=== PATIENT | male | born 1975 | race Caucasian/White ===

== ENCOUNTER 2018-03-01 12:42 | Inpatient (IN) | payer OTHER ==
[2018-03-01 14:44] VITALS: BMI 31.6
--- NOTE | 2018-03-01 18:16 | HP ---
COWS - Scale Resting Pulse: 1= NE 81-100 Sweatin= Chills/Flushing Restless Observation: 1= Difficult to Sit Still Pupil Size: 0= Normal to Room Light Bone or Joint Aches: 1= Mild Discomfort Runny Nose/ Eye Tearin= Runny Nose/Eyes GI Upset > 30mins: 2= Nausea/Diarrhea Tremor Observation: 1= Tremor [place], Not Seen Yawning Observation: 1= 1-2x During Session Anxiety or Irritability: 2=Irritable/Anxious Goose Flesh Skin: 3=Piloerection COWS Score: 15 Admission ROS [facility] Chief Complaint: opioid withdrawal symptoms Allergies/Adverse Reactions: Allergies Allergy/AdvReac Type Severity Reaction Status Date / Time soy Allergy Severe Swelling Verified 03/01/18 18:25 No Known Drug Allergies Allergy Verified 03/01/18 18:25 SOY MILK Allergy Severe Swelling Uncoded 03/01/18 15:38 NKDA Allergy Uncoded 03/01/18 15:39 History of Present Illness: 42 yo male with hx of cocaine, nicotine, street methadon, IV heroin and cocaine dependence is here seeking detox. Last detox one month ago at [facility]. PMHX: asthma, and depression. Denies suicidal / homicidal ideation or hx of suicide attempt. Denies hx of seizures or blackouts,. OD x2, with last episode one year ago. Longest period of sobriety 18 months. Exam Limitations: No Limitations - Ebola screening Have you traveled outside of the country in the last 21 days: No Have you had contact with anyone from an Ebola affected area: No Have you been sick,other than usual withdrawal symptoms: No Do you have a fever: No - Review of Systems Constitutional: Chills, Loss of Appetite, Changes in sleep, Unintentional Wgt. Loss EENT: reports: No Symptoms Reported Respiratory: reports: No Symptoms reported GI: reports: No Symptoms Reported Musculoskeletal: reports: Back Pain, Joint Pain Integumentary: reports: No Symptoms Reported Neuro: reports: No Symptoms reported Endocrine: reports: Increased Thirst Hematology: reports: No Symptoms Reported Psychiatric: reports: Orientated x3, Depressed Other Systems: Reviewed and Negative Patient History - Patient Medical History Hx Anemia: No Hx Asthma: Yes Hx Chronic Obstructive Pulmonary Disease (COPD): No Hx Cancer: No Hx Cardiac Disorders: No Hx Congestive Heart Failure: No Hx Hypertension: No Hx Pacemaker: No HX Cerebrovascular Accident: No Hx Seizures: No Hx Dementia: No Hx Diabetes: No Hx Gastrointestinal Disorders: No Hx Liver Disease: No Hx Genitourinary Disorders: No Hx Sexually Transmitted Disorders: No Hx Renal Disease (ESRD): No Hx Thyroid Disease: No Hx Human Immunodeficiency Virus (HIV): No (last tested one year ago. Declines testing today ) Hx Hepatitis C: No Hx Depression: Yes Hx Suicide Attempt: No Hx Bipolar Disorder: No Hx Schizophrenia: No - Patient Surgical History Past Surgical History: No Hx Neurologic Surgery: No Hx Cataract Extraction: No Hx Cardiac Surgery: No Hx Lung Surgery: No Hx Breast Surgery: No Hx Breast Biopsy: No Hx Abdominal Surgery: No Hx Appendectomy: No Hx Cholecystectomy: No Hx Genitourinary Surgery: No Hx Section: No Hx Orthopedic Surgery: No Anesthesia Reaction: No - PPD History Previous Implant?: Yes Documented Results: Negative w/o proof Implanted On Prior [facility] Admission?: No PPD to be Administered?: Yes - Smoking Cessation Smoking history: Current every day smoker Have you smoked in the past 12 months: Yes Aproximately how many cigarettes per day: 10 Hx Chewing Tobacco Use: No Initiated information on smoking cessation: Yes 'Breaking Loose' booklet given: 03/01/18 - Substance & Tx. History Hx Alcohol Use: Yes Hx Substance Use: Yes Substance Use Type: Cocaine, Heroin Hx Substance Use Treatment: Yes ([facility] one month ago ) - Substances Abused Heroin Route: Injection Frequency: Daily Amount used: 10-15 bags Age of first use: 17 Date of Last Use: 03/01/18 Cocaine Route: Smoking Frequency: 1-2 times per week Amount used: $20 Age of first use: 16 Date of Last Use: 02/27/18 Street methadone Route: Oral Frequency: 1-3 times last 30 days Amount used: 50 mg. Age of first use: 17 Date of Last Use: 02/25/18 Family Disease History - Family Disease History Family History: Unremarkable Admission Physical Exam BHS - Vital Signs Vital Signs: Vital Signs - 24 hr 03/01/18 14:42 Temperature 99.2 F Pulse Rate 85 Respiratory 18 Rate Blood Pressure 115/77 - Physical General Appearance: Yes: Appropriately Dressed, Mild Distress, Obese, Sweating, Anxious HEENTM: Yes: EOMI, Hearing grossly Normal, Normal ENT Inspection, Normocephalic , Normal Voice, PORTILLO, Pharynx Normal, Tm's normal Respiratory: Yes: Chest Non-Tender, Normal Breath Sounds, No Respiratory Distress, No Accessory Muscle Use Neck: Yes: No masses,lesions,Nodules, Trachea in good position Breast: Yes: Breast Exam Deferred Cardiology: Yes: Regular Rhythm, Regular Rate Abdominal: Yes: Normal Bowel Sounds, Non Tender, Soft, Protuberent Genitourinary: Yes: Within Normal Limits Back: Yes: Normal Inspection Musculoskeletal: Yes: full range of Motion, Gait Steady, Pelvis Stable Extremities: Yes: Normal Capillary Refill, Normal Inspection, Normal Range of Motion, Non-Tender 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 NML intact, Fully Oriented, Alert, Motor Strength 5/5, Depressed Affect Integumentary: Yes: Normal Color, Warm, Diaphoresis, Track Santacruz (bilateral forearms no infection) - Diagnostic (1) Cocaine dependence Current Visit: Yes Status: Acute Qualifiers: Substance use status: uncomplicated Qualified Code(s): F14.20 - Cocaine dependence, uncomplicated (2) Opioid dependence with withdrawal Current Visit: Yes Status: Acute (3) IV drug user Current Visit: Yes Status: Acute (4) Asthma Current Visit: Yes Status: Chronic Qualifiers: Asthma severity: unspecified severity Asthma persistence: unspecified Asthma complication type: unspecified Qualified Code(s): J45.909 - Unspecified asthma, uncomplicated (5) Depressed mood Current Visit: Yes Status: Acute (6) Nicotine dependence Current Visit: Yes Status: Chronic Qualifiers: Nicotine product type: cigarettes Cleared for Admission [facility] - Detox or Rehab [facility] Level of Care: Medically Managed Detox Regimen/Protocol: Methadone [facility] Breath Alcohol Content Breath Alcohol Content: 0 Urine Drug Screen - Results Drug Screen Negative: No Urine Drug Screen Results: ADEN-Cocaine, OPI-Opiates, MTD-Methadone
[2018-03-01] MEDS ORDERED: ALBUTEROL SO4 8 GM HFA INHALER IH PRN (18:17)
[2018-03-01] MEDS ORDERED: MENTHOL/PHENOL 1 EACH UD MM PRN (18:18)
[2018-03-01] MEDS ORDERED: LOPERAMIDE HCL 2 MG CAPSULE PO PRN (18:18)
[2018-03-01] MEDS ORDERED: ACETAMINOPHEN 325 MG TABLET (FP) PO PRN (18:18)
[2018-03-01] MEDS ORDERED: MAGNESIUM HYDROX 2400MG/30ML ORAL SUSPENSION 30 ML CUP PO PRN (18:18)
[2018-03-01] MEDS ORDERED: guaiFENesin/D-METHORPHAN HB 10 ML UNIT-DOSE CUPS PO PRN (18:18)
[2018-03-01] MEDS ORDERED: MAGNESIUM CITRATE 300 ML BOTTLE PO PRN (18:18)
[2018-03-01] MEDS ORDERED: MAG HYDROX/AL HYDROX/SIMETH 30 ML UNIT-DOSE CUP PO PRN (18:18)
[2018-03-01] MEDS ORDERED: P-EPHED 60MG/TRIPROLIDI 2.5MG TABLET PO PRN (18:18)
[2018-03-01] MEDS ORDERED: ALBUTEROL SO4 0.083% IH SOL 2.5 MG/3 ML VIAL.NEB. NEB PRN (18:24)
[2018-03-01] MEDS ORDERED: METHADONE HCL 10 MG TABLET (FOR DETOX USE ONLY) PO ONE ×2 (19:00→23:00)
[2018-03-01] MEDS: diazePAM 5 MG TABLET PO PRN (19:19)
[2018-03-01] MEDS: NICOTINE POLACRILEX 2 MG GUM BC PRN (20:02)
[2018-03-01 22:11] LABS: URINE APPEARANCE TURBID; URINE BILIRUBIN NEGATIVE (<2.0 mg/dL); URINE COLOR RED; URINE GLUCOSE (UA) NEGATIVE (NEGATIVE); URINE KETONE NEGATIVE (NEGATIVE); URINE LEUK ESTERASE NEGATIVE (NEGATIVE); URINE NITRITE NEGATIVE (NEGATIVE); URINE PROTEIN NEGATIVE (NEGATIVE); URINE UROBILINOGEN NEGATIVE mg/dL (0.2-1.0)
[2018-03-01] MEDS: THIAMINE HCL 100 MG TABLET (FP) PO SCH (22:25)
[2018-03-01] MEDS: MELATONIN 5 MG TABLETS PO PRN (22:30)
[2018-03-01] MEDS: hydrOXYzine PAMOATE 50 MG CAPSULE (FP) PO PRN (22:30)
--- NOTE | 2018-03-02 07:46 | CONSULT ---
[facility] Psychiatric Consult - Data Date of interview: 03/02/18 Admission source: [facility] Identifying data: This is 42 years old male, single father of five, living with family, unemployed, with no income, with no psychiatric hospitalization history, with history of cocaine, nicotine, street methadon, IV heroin and alcohol dependence is here seeking detox. Last detox one month ago at [facility]. PMHX: asthma, and depression. Denies suicidal / homicidal ideation or hx of suicide attempt. Denies hx of seizures or blackouts,. OD x2, with last episode one year ago. Longest period of sobriety 18 months. Substance Abuse History: Smoking history: Current every day smoker. Have you smoked in the past 12 months: Yes. Aproximately how many cigarettes per day: 10. Hx Chewing Tobacco Use: No. Initiated information on smoking cessation: Yes. 'Breaking Loose' booklet given: 03/01/18. - Substance & Tx. History. Hx Alcohol Use: Yes. Hx Substance Use: Yes. Substance Use Type: Cocaine, Heroin. Hx Substance Use Treatment: Yes ([facility] one month ago ). - Substances Abused. Heroin. Route: Injection. Frequency: Daily. Amount used: 10-15 bags. Age of first use: 17. Date of Last Use: 03/01/18. Cocaine. Route: Smoking. Frequency: 1-2 times per week. Amount used: $20. Age of first use: 16. Date of Last Use: 02/27/18. Street methadone. Route : Oral. Frequency: 1-3 times last 30 days. Amount used: 50 mg. Age of first use: 17. Date of Last Use: 02/25/18 Medical History: Asthma Psychiatric History: Patient reports history of dep[ression and anxiety, reports unclear eoisode of OD a years ago, was not psychiatriocally hospitalized after OD, reports no psychiatric medications usage prior to admission, [place] current suicidal, homicidal ideation. Physical/Sexual Abuse/Trauma History: Denies Additional Comment: Observation. Detox Unit Care Protocol Mental Status Exam - Mental Status Exam Alert and Oriented to: Person Cognitive Function: Fair Patient Appearance: Unkempt Mood: Sad Affect: Flat Patient Behavior: Sedated Speech Pattern: Delayed Voice Loudness: Mildly Soft/Quiet Thought Process: Circumstantial, Goal Oriented Thought Disorder: Being Controlled Hallucinations: Denies Suicidal Ideation: Denies Homicidal Ideation: Denies Insight/Judgement: Fair Sleep: Difficulty falling asleep Appetite: Fair Muscle strength/Tone: Mild Hypotonicity Gait/Station: Shuffling Additional Comments: Observation. Detox Unit Care Protocol Psychiatric Findings - Problem List ([place] 1, 2,3) (1) Alcohol dependence Current Visit: Yes Status: Acute (2) Drug-induced mood disorder Current Visit: Yes Status: Acute (3) Cocaine dependence Current Visit: Yes Status: Acute Qualifiers: Substance use status: uncomplicated Qualified Code(s): F14.20 - Cocaine dependence, uncomplicated (4) Opioid dependence with withdrawal Current Visit: Yes Status: Acute (5) Nicotine dependence Current Visit: Yes Status: Chronic Qualifiers: Nicotine product type: cigarettes - Initial Treatment Plan Initial Treatment Plan: Observation. Detox Unit Care Protocol
[2018-03-02 09:55] LABS: HEMATOCRIT 38.7 % (35.4-49); HEMOGLOBIN 13.2 GM/dL (11.7-16.9); MCH 29.9 pg (25.7-33.7); MCHC 34.1 g/dl (32.0-35.9); MEAN CELL VOLUME 87.7 fl (80-96); MEAN PLT VOLUME 7.6 fl (7.5-11.1); PLATELET COUNT 274 K/MM3 (134-434); RBC 4.41 M/mm3 (4.00-5.60); RDW 13.2 % (11.9-15.9); WHITE BLOOD COUNT 6.1 K/mm3 (4.0-10.0)
[2018-03-02 09:58] LABS: CHLORIDE 107 mmol/L (98-107); POTASSIUM 4.6 mmol/L (3.5-5.1); SODIUM 143 mmol/L (136-145)
[2018-03-02] MEDS ORDERED: METHADONE HCL 10 MG TABLET (FOR DETOX USE ONLY) PO ONE (10:00)
[2018-03-02 10:20] LABS: ALK PHOS 59 U/L (45-117); ANION GAP 6 (8-16); BILIRUBIN,TOTAL 0.2 mg/dL (0.2-1.0); BLOOD UREA NITROGEN 14 mg/dL (7-18); CALCIUM 8.7 mg/dL (8.5-10.1); CO2 30 mmol/L (21-32); CREATININE 0.8 mg/dL (0.7-1.3); GLUCOSE,RANDOM 92 mg/dL (74-106); SGOT/AST 12 U/L (15-37); SGPT/ALT 20 U/L (12-78); TOT PROT 6.1 g/dl (6.4-8.2)
--- NOTE | 2018-03-02 10:42 | PN ---
BHS COWS - Scale Resting Pulse: 0= [place] 80 or Below Sweatin= Chills/Flushing Restless Observation: 1= Difficult to Sit Still Pupil Size: 1= Pupils >than Normal Bone or Joint Aches: 2= Severe Diffuse Aches Runny Nose/ Eye Tearin= Nasal Congestion GI Upset > 30mins: 2= Nausea/Diarrhea Tremor Observation of Outstretched Hands: 2= Slight Tremor Visible Yawning Observation: 2= >3x During Session Anxiety or Irritability: 2=Irritable/Anxious Goose Flesh Skin: 0=Smooth Skin COWS Score: 14 BHS Progress Note (SOAP) Subjective: joints pain muscle cramping body aches sweat tremor gi distress Objective: 03/02/18 10:45 Vital Signs Temperature 98 F 03/02/18 09:25 Pulse Rate 64 03/02/18 09:25 Respiratory Rate 18 03/02/18 09:25 Blood Pressure 105/73 03/02/18 09:25 O2 Sat by Pulse Oximetry (%) Laboratory Last Values WBC 6.1 K/mm3 (4.0-10.0) 03/02/18 07:30 RBC 4.41 M/mm3 (4.00-5.60) 03/02/18 07:30 Hgb 13.2 GM/dL (11.7-16.9) 03/02/18 07:30 Hct 38.7 % (35.4-49) 03/02/18 07:30 MCV 87.7 fl (80-96) 03/02/18 07:30 MCH 29.9 pg (25.7-33.7) 03/02/18 07:30 MCHC 34.1 g/dl (32.0-35.9) 03/02/18 07:30 RDW 13.2 % (11.9-15.9) 03/02/18 07:30 Plt Count 274 K/MM3 (134-434) 03/02/18 07:30 MPV 7.6 fl (7.5-11.1) 03/02/18 07:30 Sodium 143 mmol/L (136-145) 03/02/18 07:30 Potassium 4.6 mmol/L (3.5-5.1) 03/02/18 07:30 Chloride 107 mmol/L (98-107) 03/02/18 07:30 Carbon Dioxide 30 mmol/L (21-32) 03/02/18 07:30 Anion Gap 6 (8-16) L 03/02/18 07:30 BUN 14 mg/dL (7-18) 03/02/18 07:30 Creatinine 0.8 mg/dL (0.7-1.3) 03/02/18 07:30 Creat Clearance w eGFR > 60 (>60) 03/02/18 07:30 Random Glucose 92 mg/dL (74-106) 03/02/18 07:30 Calcium 8.7 mg/dL (8.5-10.1) 03/02/18 07:30 Total Bilirubin 0.2 mg/dL (0.2-1.0) 03/02/18 07:30 AST 12 U/L (15-37) L 03/02/18 07:30 ALT 20 U/L (12-78) 03/02/18 07:30 Alkaline Phosphatase 59 U/L (45-117) 03/02/18 07:30 Total Protein 6.1 g/dl (6.4-8.2) L 03/02/18 07:30 Albumin 3.0 g/dl (3.4-5.0) L 03/02/18 07:30 Urine Color Red 03/01/18 20:30 Urine Appearance Turbid 03/01/18 20:30 Urine pH 5.0 (5.0-8.0) 03/01/18 20:30 Ur Specific [place] 1.023 (1.001-1.035) 03/01/18 20:30 Urine Protein Negative (NEGATIVE) 03/01/18 20:30 Urine Glucose (UA) Negative (NEGATIVE) 03/01/18 20:30 Urine Ketones Negative (NEGATIVE) 03/01/18 20:30 Urine Blood Negative (NEGATIVE) 03/01/18 20:30 Urine Nitrite Negative (NEGATIVE) 03/01/18 20:30 Urine Bilirubin Negative (<2.0 mg/dL) 03/01/18 20:30 Urine Urobilinogen Negative mg/dL (0.2-1.0) 03/01/18 20:30 Ur Leukocyte Esterase Negative (NEGATIVE) 03/01/18 20:30 lab noted Assessment: 03/02/18 10:45 withdrawal sx Plan: continue detox
[2018-03-02] MEDS: PRENATAL VITAMINS W/ FOLIC ACID TABLET (FP) PO SCH (11:11)
[2018-03-02] MEDS: diazePAM 5 MG TABLET PO PRN ×2 (11:13→23:13)
[2018-03-02] MEDS: NICOTINE 14 MG/24 HOURS TOPICAL PATCH TD SCH (11:14)
[2018-03-02] MEDS ORDERED: NICOTINE POLACRILEX 4 MG GUM BUC ONE (11:15)
[2018-03-02] MEDS: NICOTINE POLACRILEX 2 MG GUM BC PRN (11:16)
--- NOTE | 2018-03-02 12:50 | EKG ---
Test Reason : Blood Pressure : / mmHG Vent. Rate : 063 BPM Atrial Rate : 063 BPM P-R Int : 186 ms QRS Dur : 100 ms QT Int : 398 ms P-R-T Axes : 032 039 043 degrees QTc Int : 407 ms NORMAL SINUS RHYTHM NORMAL ECG NO PREVIOUS ECGS AVAILABLE Confirmed by TIAGO EATON MD ([id number]) on 03/02/2018 12:50:04 PM Referred By: Confirmed By:TIAGO EATON MD
[2018-03-02] MEDS: THIAMINE HCL 100 MG TABLET (FP) PO SCH (23:13)
[2018-03-03] MEDS ORDERED: METHADONE HCL 5 MG TABLET (FOR DETOX USE ONLY) PO ONE (10:00)
--- NOTE | 2018-03-03 10:14 | PN ---
S COWS - Scale Resting Pulse: 0= [place] 80 or Below Sweatin= Chills/Flushing Restless Observation: 3= Extraneous Movement Pupil Size: 1= Pupils >than Normal Bone or Joint Aches: 2= Severe Diffuse Aches Runny Nose/ Eye Tearin= Nasal Congestion GI Upset > 30mins: 1= Stomach Cramp Tremor Observation of Outstretched Hands: 1= Tremor [place], Not Seen Yawning Observation: 0= None Anxiety or Irritability: 1=Feels Anxious/Irritable Goose Flesh Skin: 0=Smooth Skin COWS Score: 11 S Progress Note (SOAP) Subjective: interrupted sleep, sweats , aches Objective: 03/03/18 10:12 Vital Signs Temperature 98.2 F 03/03/18 09:49 Pulse Rate 59 L 03/03/18 09:49 Respiratory Rate 18 03/03/18 09:49 Blood Pressure 123/79 03/03/18 09:49 O2 Sat by Pulse Oximetry (%) Laboratory Tests 03/01/18 03/02/18 03/02/18 20:30 07:30 07:30 WBC 6.1 RBC 4.41 Hgb 13.2 Hct 38.7 MCV 87.7 MCH 29.9 MCHC 34.1 RDW 13.2 Plt Count 274 MPV 7.6 Sodium 143 Potassium 4.6 Chloride 107 Carbon Dioxide 30 Anion Gap 6 L BUN 14 Creatinine 0.8 Creat Clearance w eGFR > 60 Random Glucose 92 Calcium 8.7 Total Bilirubin 0.2 AST 12 L ALT 20 Alkaline Phosphatase 59 Total Protein 6.1 L Albumin 3.0 L Urine Color Red Urine Appearance Turbid Urine pH 5.0 Ur Specific [place] 1.023 Urine Protein Negative Urine Glucose (UA) Negative Urine Ketones Negative Urine Blood Negative Urine Nitrite Negative Urine Bilirubin Negative Urine Urobilinogen Negative Ur Leukocyte Esterase Negative RPR Titer 03/02/18 07:30 WBC RBC Hgb Hct MCV MCH MCHC RDW Plt Count MPV Sodium Potassium Chloride Carbon Dioxide Anion Gap BUN Creatinine Creat Clearance w eGFR Random Glucose Calcium Total Bilirubin AST ALT Alkaline Phosphatase Total Protein Albumin Urine Color Urine Appearance Urine pH Ur Specific [place] Urine Protein Urine Glucose (UA) Urine Ketones Urine Blood Urine Nitrite Urine Bilirubin Urine Urobilinogen Ur Leukocyte Esterase RPR Titer Nonreactive pt aox3 in nad lying in bed , restless Assessment: 03/03/18 10:13 withdrawal sx's Plan: cont. detox increase fluids motrin prn
[2018-03-03] MEDS: PRENATAL VITAMINS W/ FOLIC ACID TABLET (FP) PO SCH (10:41)
[2018-03-03] MEDS: diazePAM 5 MG TABLET PO PRN ×2 (10:42→22:11)
[2018-03-03] MEDS: NICOTINE 14 MG/24 HOURS TOPICAL PATCH TD SCH (10:44)
[2018-03-03] MEDS: hydrOXYzine PAMOATE 50 MG CAPSULE (FP) PO PRN (11:57)
[2018-03-03] MEDS: IBUPROFEN 400 MG TABLET (FP) PO PRN ×2 (11:59→22:09)
[2018-03-03] MEDS: THIAMINE HCL 100 MG TABLET (FP) PO SCH (22:08)
[2018-03-03] MEDS: MELATONIN 5 MG TABLETS PO PRN (22:10)
[2018-03-04] MEDS: diazePAM 5 MG TABLET PO PRN ×3 (03:40→17:19)
[2018-03-04] MEDS ORDERED: METHADONE HCL 5 MG TABLET (FOR DETOX USE ONLY) PO ONE (10:00)
[2018-03-04] MEDS: PRENATAL VITAMINS W/ FOLIC ACID TABLET (FP) PO SCH (10:06)
[2018-03-04] MEDS: NICOTINE 14 MG/24 HOURS TOPICAL PATCH TD SCH (10:10)
[2018-03-04] MEDS: NICOTINE POLACRILEX 2 MG GUM BC PRN ×2 (10:10→17:19)
[2018-03-04] MEDS ORDERED: ONDANSETRON *ODT* 4 MG TABLET SL PRN (11:24)
--- NOTE | 2018-03-04 12:57 | PN ---
S Progress Note (SOAP) Subjective: alert,irritable,anxious,interrupted sleep,nausea,pain in the body and back Objective: 03/04/18 12:55 Vital Signs Temperature 98.1 F 03/04/18 10:01 Pulse Rate 92 H 03/04/18 10:01 Respiratory Rate 16 03/04/18 10:01 Blood Pressure 124/75 03/04/18 10:01 O2 Sat by Pulse Oximetry (%) Assessment: 03/04/18 12:56 withdrawal symptom Plan: continue detox,zofran sl 4 mgs q 6 hrs prn for nausea or vomiting
[2018-03-04] MEDS: hydrOXYzine PAMOATE 50 MG CAPSULE (FP) PO PRN (19:28)
[2018-03-05] MEDS: hydrOXYzine PAMOATE 50 MG CAPSULE (FP) PO PRN (02:55)
[2018-03-05] MEDS: IBUPROFEN 400 MG TABLET (FP) PO PRN (05:26)
[2018-03-05] MEDS ORDERED: METHADONE HCL 10 MG TABLET (FOR DETOX USE ONLY) PO ONE (10:00)
[2018-03-05] MEDS: PRENATAL VITAMINS W/ FOLIC ACID TABLET (FP) PO SCH (10:25)
[2018-03-05] MEDS: NICOTINE POLACRILEX 2 MG GUM BC PRN (10:25)
[2018-03-05] MEDS: NICOTINE 14 MG/24 HOURS TOPICAL PATCH TD SCH (10:25)
[2018-03-05 10:47] VITALS: BP 105/57; PULSE 76; TEMP 97.5
--- NOTE | 2018-03-05 10:54 | DS ---
[facility] Detox Discharge Summary Admission Date: 03/01/18 Discharge Date: 03/05/18 - History Present History: Opioid Dependence Additional Comments: 42 years old male admitted on 03/01/18 for opiate withdrawal sx reports mild opiate withdrawal sx today after 10 mg of methadone prefers to leave the detox facility and return to [facility] on 03/06/18 for revelation admission alert oriented x 3 no acute distress denies suicidal denies homocidal no self destructive behavior - Physical Exam Results Vital Signs: Vital Signs Temperature 97.5 F L 03/05/18 10:47 Pulse Rate 76 03/05/18 10:47 Respiratory Rate 16 03/05/18 10:47 Blood Pressure 105/57 03/05/18 10:47 O2 Sat by Pulse Oximetry (%) Pertinent Admission Physical Exam Findings: opiate withdrawal sx Vital Signs Temperature 97.5 F L 03/05/18 10:47 Pulse Rate 76 03/05/18 10:47 Respiratory Rate 16 03/05/18 10:47 Blood Pressure 105/57 03/05/18 10:47 O2 Sat by Pulse Oximetry (%) Laboratory Last Values WBC 6.1 K/mm3 (4.0-10.0) 03/02/18 07:30 RBC 4.41 M/mm3 (4.00-5.60) 03/02/18 07:30 Hgb 13.2 GM/dL (11.7-16.9) 03/02/18 07:30 Hct 38.7 % (35.4-49) 03/02/18 07:30 MCV 87.7 fl (80-96) 03/02/18 07:30 MCH 29.9 pg (25.7-33.7) 03/02/18 07:30 MCHC 34.1 g/dl (32.0-35.9) 03/02/18 07:30 RDW 13.2 % (11.9-15.9) 03/02/18 07:30 Plt Count 274 K/MM3 (134-434) 03/02/18 07:30 MPV 7.6 fl (7.5-11.1) 03/02/18 07:30 Sodium 143 mmol/L (136-145) 03/02/18 07:30 Potassium 4.6 mmol/L (3.5-5.1) 03/02/18 07:30 Chloride 107 mmol/L (98-107) 03/02/18 07:30 Carbon Dioxide 30 mmol/L (21-32) 03/02/18 07:30 Anion Gap 6 (8-16) L 03/02/18 07:30 BUN 14 mg/dL (7-18) 03/02/18 07:30 Creatinine 0.8 mg/dL (0.7-1.3) 03/02/18 07:30 Creat Clearance w eGFR > 60 (>60) 03/02/18 07:30 Random Glucose 92 mg/dL (74-106) 03/02/18 07:30 Calcium 8.7 mg/dL (8.5-10.1) 03/02/18 07:30 Total Bilirubin 0.2 mg/dL (0.2-1.0) 03/02/18 07:30 AST 12 U/L (15-37) L 03/02/18 07:30 ALT 20 U/L (12-78) 03/02/18 07:30 Alkaline Phosphatase 59 U/L (45-117) 03/02/18 07:30 Total Protein 6.1 g/dl (6.4-8.2) L 03/02/18 07:30 Albumin 3.0 g/dl (3.4-5.0) L 03/02/18 07:30 Urine Color Red 03/01/18 20:30 Urine Appearance Turbid 03/01/18 20:30 Urine pH 5.0 (5.0-8.0) 03/01/18 20:30 Ur Specific [place] 1.023 (1.001-1.035) 03/01/18 20:30 Urine Protein Negative (NEGATIVE) 03/01/18 20:30 Urine Glucose (UA) Negative (NEGATIVE) 03/01/18 20:30 Urine Ketones Negative (NEGATIVE) 03/01/18 20:30 Urine Blood Negative (NEGATIVE) 03/01/18 20:30 Urine Nitrite Negative (NEGATIVE) 03/01/18 20:30 Urine Bilirubin Negative (<2.0 mg/dL) 03/01/18 20:30 Urine Urobilinogen Negative mg/dL (0.2-1.0) 03/01/18 20:30 Ur Leukocyte Esterase Negative (NEGATIVE) 03/01/18 20:30 RPR Titer Nonreactive (NONREACTIVE) 03/02/18 07:30 lab noted - Treatment Hospital Course: Detox Protocol Followed, Detoxed Safely, Responded well, Discharged Condition Good, Rehab Referral Accepted Patient has Accepted a Rehab Referral to: [facility] - Medication Discharge Medications: Ambulatory Orders Albuterol Sulfate Inhaler - [Ventolin HFA Inhaler -] 2 inh PO Q4H PRN #1 inhaler 03/05/18 - Diagnosis (1) Asthma Current Visit: Yes Status: Chronic Qualifiers: Asthma severity: mild Asthma persistence: intermittent Asthma complication type: with status asthmaticus Qualified Code(s): J45.22 - Mild intermittent asthma with status asthmaticus (2) Nicotine dependence Current Visit: Yes Status: Acute Qualifiers: Nicotine product type: cigarettes Substance use status: in withdrawal Qualified Code(s): F17.213 - Nicotine dependence, cigarettes, with withdrawal (3) Opioid dependence with withdrawal Current Visit: Yes Status: Acute - AMA Did Patient Leave Against Medical Advice: No
[2018-03-06] MEDS ORDERED: METHADONE HCL 5 MG TABLET (FOR DETOX USE ONLY) PO ONE (06:00)
== END 2018-03-05 11:30 | disposition home or self-care (01) | DRG 773 ==
LOC: YASAS 12:42 → Y6N 17:09
PROVIDERS: ADMIT Surgery; ATTEND Surgery
PROC: HZ2ZZZZ Detoxification Services for Substance Abuse Treatment (ICD-10-PCS; principal; 2018-03-01)
DX: F11.23 Opioid dependence with withdrawal (principal); F14.20 Cocaine dependence, uncomplicated; F10.20 Alcohol dependence, uncomplicated; F17.213 Nicotine dependence, cigarettes, with withdrawal; F19.24 Other psychoactive substance dependence with psychoactive substance-induced mood disorder; F32.9 Major depressive disorder, single episode, unspecified; J45.22 Mild intermittent asthma with status asthmaticus; E66.9 Obesity, unspecified; Z68.31 Body mass index [BMI] 31.0-31.9, adult; Z91.011 Allergy to milk products
CPT/HCPCS: 36415; 80053; 81003; 85027; 86593; 93005; 93010; Q0162

== ENCOUNTER 2021-08-22 13:03 | Inpatient (IN) | payer OTHER ==
[2021-08-22 13:55] VITALS: BMI 41.6
[2021-08-22] MEDS ORDERED: ACETAMINOPHEN 325 MG TABLET (FP) PO PRN ×2 (14:13)
[2021-08-22] MEDS ORDERED: cloNIDine HCL 0.1 MG TABLET PO PRN (14:13)
[2021-08-22] MEDS ORDERED: NICOTINE 10 MG CARTRIDGE (INHALER) IH PRN (14:13)
[2021-08-22] MEDS ORDERED: IBUPROFEN 400 MG TABLET (FP) PO PRN (14:13)
[2021-08-22] MEDS ORDERED: MAGNESIUM CITRATE 300 ML BOTTLE PO PRN (14:13)
[2021-08-22] MEDS ORDERED: methaDONE HCL 10 MG TABLET (FOR DETOX USE ONLY) PO ONE ×2 (14:13→17:00)
[2021-08-22] MEDS ORDERED: MAGNESIUM HYDROX 2400MG/30ML ORAL SUSPENSION 30 ML CUP PO PRN (14:13)
[2021-08-22] MEDS ORDERED: MENTHOL/PHENOL 1 EACH UD MM PRN (14:13)
[2021-08-22] MEDS ORDERED: BISMUTH SUBSALICYLATE 524 MG/30 ML PO PRN (14:13)
[2021-08-22] MEDS ORDERED: MAG HYDROX/AL HYDROX/SIMETH 30 ML UNIT-DOSE CUP PO PRN (14:13)
[2021-08-22] MEDS ORDERED: ONDANSETRON *ODT* 4 MG TABLET SL PRN (14:13)
[2021-08-22] MEDS ORDERED: ALBUTEROL SO4 HFA INHALER IH PRN (14:17)
[2021-08-22] MEDS ORDERED: hydrOXYzine PAMOATE 25 MG CAPSULE (FP) PO SCH (18:00)
[2021-08-22] MEDS: NICOTINE 21 MG/24 HOURS TOPICAL PATCH TD SCH (18:58)
[2021-08-22] MEDS: PRENATAL VITAMINS W/ FOLIC ACID TABLET (FP) PO SCH (18:58)
[2021-08-22] MEDS: THIAMINE HCL 100 MG TABLET (FP) PO SCH (22:55)
[2021-08-22] MEDS: METHOCARBAMOL 500 MG TABLET PO PRN (22:55)
[2021-08-22] MEDS: MELATONIN 5 MG TABLETS PO SCH (22:55)
[2021-08-22] MEDS ORDERED: ALBUTEROL SO4 HFA INHALER IH ONE (22:56)
[2021-08-23] MEDS ORDERED: methaDONE HCL 10 MG TABLET (FOR DETOX USE ONLY) ONE (09:41)
[2021-08-23] MEDS: NICOTINE 21 MG/24 HOURS TOPICAL PATCH TD SCH (10:08)
[2021-08-23] MEDS: PRENATAL VITAMINS W/ FOLIC ACID TABLET (FP) PO SCH (10:08)
[2021-08-23] MEDS: METHOCARBAMOL 500 MG TABLET PO PRN ×2 (10:08→22:26)
[2021-08-23 11:13] LABS: HEMATOCRIT 39.6 % (35.4-49); HEMOGLOBIN 13.1 GM/dL (11.7-16.9); MCH 30.3 pg (25.7-33.7); MCHC 33.1 g/dl (32.0-35.9); MEAN CELL VOLUME 91.4 fl (80-96); MEAN PLT VOLUME 7.4 fl (7.5-11.1); PLATELET COUNT 217 10^3/uL (134-434); RBC 4.33 M/mm3 (4.00-5.60); RDW 14.9 % (11.9-15.9); WHITE BLOOD COUNT 7.3 K/mm3 (4.0-10.0)
[2021-08-23 11:25] LABS: CALCIUM 8.6 mg/dL (8.5-10.1)
[2021-08-23 11:26] LABS: ALBUMIN 3.2 g/dl (3.4-5.0); BLOOD UREA NITROGEN 15.7 mg/dL (7-18)
[2021-08-23 11:29] LABS: CREATININE 0.8 mg/dL (0.55-1.3)
[2021-08-23 11:30] LABS: BILIRUBIN,TOTAL 0.6 mg/dL (0.2-1); TOT PROT 6.4 g/dl (6.4-8.2)
[2021-08-23] MEDS ORDERED: diazePAM 5 MG TABLET PO PRN (14:26)
[2021-08-23] MEDS: MELATONIN 5 MG TABLETS PO SCH (22:26)
[2021-08-23] MEDS: THIAMINE HCL 100 MG TABLET (FP) PO SCH (22:26)
[2021-08-24] MEDS ORDERED: methaDONE HCL 10 MG TABLET (FOR DETOX USE ONLY) PO ONE (10:00)
[2021-08-24] MEDS: PRENATAL VITAMINS W/ FOLIC ACID TABLET (FP) PO SCH (10:11)
[2021-08-24] MEDS: METHOCARBAMOL 500 MG TABLET PO PRN ×2 (10:12→22:15)
[2021-08-24] MEDS: NICOTINE 21 MG/24 HOURS TOPICAL PATCH TD SCH (10:14)
[2021-08-24] MEDS: MELATONIN 5 MG TABLETS PO SCH (22:12)
[2021-08-24] MEDS: THIAMINE HCL 100 MG TABLET (FP) PO SCH (22:13)
[2021-08-25] MEDS ORDERED: methaDONE HCL 10 MG TABLET (FOR DETOX USE ONLY) ONE (09:27)
[2021-08-25] MEDS: METHOCARBAMOL 500 MG TABLET PO PRN (10:21)
[2021-08-25] MEDS: PRENATAL VITAMINS W/ FOLIC ACID TABLET (FP) PO SCH (10:21)
[2021-08-25] MEDS: NICOTINE 21 MG/24 HOURS TOPICAL PATCH TD SCH (10:22)
[2021-08-25] MEDS ORDERED: diazePAM 5 MG TABLET PO PRN (11:22)
[2021-08-25 12:34] VITALS: BP 130/67; PULSE 82; TEMP 98.9
[2021-08-25] MEDS ORDERED: hydrOXYzine PAMOATE 25 MG CAPSULE (FP) PO PRN (14:32)
[2021-08-26] MEDS ORDERED: methaDONE HCL 10 MG TABLET (FOR DETOX USE ONLY) PO ONE (10:00)
== END 2021-08-25 15:58 | disposition left against medical advice (07) | DRG 770 ==
LOC: YASAS 13:03 → Y6N 16:26
PROVIDERS: ADMIT Allergy & Immunology; ATTEND Allergy & Immunology
PROC: HZ2ZZZZ Detoxification Services for Substance Abuse Treatment (ICD-10-PCS; principal; 2021-08-22)
DX: F11.23 Opioid dependence with withdrawal (principal); F14.20 Cocaine dependence, uncomplicated; F12.20 Cannabis dependence, uncomplicated; F17.210 Nicotine dependence, cigarettes, uncomplicated; F19.282 Other psychoactive substance dependence with psychoactive substance-induced sleep disorder; F19.280 Other psychoactive substance dependence with psychoactive substance-induced anxiety disorder; F19.24 Other psychoactive substance dependence with psychoactive substance-induced mood disorder; J45.20 Mild intermittent asthma, uncomplicated; M54.50 Low back pain, unspecified; G89.29 Other chronic pain
CPT/HCPCS: 36415; 80053; 85027; 86780; C9803; Q0162; U0003; U0005